=== PATIENT | female | born 1980 | race Two or more races ===

== ENCOUNTER 2020-08-18 13:26 | Emergency (ER) | payer SELFPAY ==
[~2020-08-18] VITALS: Ht 160 cm; Wt 74.3 kg
[2020-08-18 13:28] VITALS: BP 104/69
--- NOTE | 2020-08-18 14:30 | NUR ---
wire drawer: attempted to call pt from lobby to room, no answer in lobby
--- NOTE | 2020-08-18 14:54 | NUR ---
CALLED PATIENT, NOT IN LOBBY NO ANSWER
--- NOTE | 2020-08-18 15:02 | NUR ---
PATIENT STILL NOT IN WAITING ROOM, NOT ANSWERING CALLS.
== END 2020-08-18 15:20 | disposition left against medical advice (07) ==
LOC: ED 15:00
DX: R51.9 Headache, unspecified (principal); R53.83 Other fatigue; R09.81 Nasal congestion; Z53.21 Procedure and treatment not carried out due to patient leaving prior to being seen by health care provider